=== PATIENT | male | born 1960 | race Caucasian/White ===

== ENCOUNTER → 2023-08-11 | Emergency (ER) | payer BC, OTHER ==
[~2023-08-11] MED LIST: AZITHROMYCIN 250 MG TAB ONE; BENZONATATE 100 MG CAP PO ONE; GUAIFENESIN/DM 5 ML UCUP ONE; PROMETHAZINE 25 MG TABLET ONE
--- OUTSIDE RECORDS SUMMARY | 2023-08-11 04:58 | XMS REPORT | Continuity of Care Document ---
Author Name Unknown Address [address] [facility]. [address] [place] [address] [facility] thconnect Address [address] 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 Name Role Phone RUBEN GUTIERREZ Primary Care Physician UnavailDivya Sykes MD Attending Clinician [phone] DIVYA HARRELL Admitting Clinician Unavailable Payers Payer Name Policy Type Policy Number Effective Date Expirati on Date Source Problems Condition Name Condition Details Condition Category Status Onset Date Resolution Date Last Treatment Date Treating Clinician Comments Source No known active problems No known active problems Disease [facility] Allergies, Adverse Reactions, Alerts Allergy Name Allergy Type Status Severity Reaction(s) Onset Date Inactive Date Treating Clinician Comments Source NO KNOWN ALLERGIE S Drug Class Active [facility] Social History Social Habit Start Date Stop Date Quantity Comments Source Exposure to SARS-CoV-2 (event) 2022-03-10 00:00:00 2022-03-20 02:38:00 Not sure [facility] Alcohol intake 2014-10-24 00:00:00 2014-10-24 00:00:00 [facility] Sex Ass[birth year] At 1960 00:00:00 1960 00:00:00 [facility] Smoking Status Start Date Stop Date Source Never smoked tobacco [facility] Medications Ordered Medication Name Filled Medication Name Start Date Stop Date Current Medication? Ordering Clinician Indication Dosage Frequency Signature (SIG) Comments Components Source ipratropium -albuteroL (DUONEB) 0.5 mg-3 mg(2.5 mg base)/3 mL nebulizer solution 3 mL 03-20 08:00: 00 03-20 08:12 :00 No 3mL 3 mL, Inhalation , ONCE NOW, 1 dose, On Fri03/20/22 at 0300, Routine [facility] nirmatrelvi r-ritonavir (PAXLOVID, EUA,) 300 mg (150 mg x 2)-100 mg tablet 03-20 00:00: 00 Yes [id number] 3{tbl} Take 3 tablets by mouth in the morning and 3 tablets in the evening. [facility] albuterol 90 mcg/actuati on inhaler 03-20 00:00: 00 Yes [id number] 2{puff} Inhale 2 Puffs every 4 (four) hours as needed for Wheezing or Shortness of Breath. [facility] vitamin B-12 (VITAMIN B-12) 1,000 mcg tablet 07-08 19:33: 32 Yes 1000ug Take 1,000 mcg by mouth daily. [facility] VITAMIN E, DL,TOCOPHER YL ACET, (VITAMIN E, DL, ACETATE, ORAL) 07-08 19:33: 32 Yes Take by mouth. [facility] [place]-3 Fatty Acids (FISH OIL) 500 mg Cap 07-08 19:33: 32 Yes Take by mouth. [facility] Vital Signs Vital Name Observation Time Observation Value Comments S ource Systolic blood pressure 2022-03-20 08:45:00 150 mm[Hg] [facility] Diastolic blood pressure 2022-03-20 08:45:00 71 mm[Hg] [facility] Heart rate 2022-03-20 08:45:00 82 /min [facility] Body temperature 2022-03-20 08:45:00 36.72 Jihan [facility] Respiratory rate 2022-03-20 08:45:00 17 /min [facility] Oxygen saturation in Arterial blood by Pulse oximetry 2022-03-20 08:45:00 97 /min [facility] Body height 2022-03-20 07:39:00 167.6 cm [facility] Body weight 2022-03-20 07:39:00 86.183 kg [facility] BMI 2022-03-20 07:39:00 30.67 kg/m2 [facility] Procedures Procedure Date / Time Performed Performing Clinicia n Source COVID-19 (ID NOW RAPID TESTING) 2022-03-20 08:11:00 Divya Harrell [facility] XR CHEST 1 VW 2022-03-20 08:10:[address] [facility] CONSENT/REFUSAL FOR DIAGNOSIS AND TREATMENT 2022-03-20 07:23:54 Doctor Unassigned, [place] [facility] Encounters Start Date/Time End Date/Time Encounter Type Admission Type Attending [facility] Care Facility Care Department Encounter ID Source 2022-03-20 02:37:00 2022-03-20 04:02:00 Emergency Divya Harrell [facility] [id number] [facility] 2022-03-20 02:37:00 2022-03-20 04:02:00 Emergency X DIVYA HARRELL [facility] ERT [id number] [facility]
[2023-08-11 05:48] LABS: SARS-CoV-2 Antigen Rapid Res Negative (Negative)
--- NOTE | 2023-08-11 07:01 | ER ---
Nurse's Notes [facility] Name: Erasto Ho Jr Age: 62 yrs Sex: Male : 1960 Arrival Date: 08/11/2023 Time: 04:55 Bed 6 Private MD: Sofi Barillas H Diagnosis: Acute bronchitis, unspecified Presentation: 08/11 05:11 Chief complaint: Patient states: I have been having flu like symptoms for about a week jb4 and was advised to get a covid test and I want to know whats going on. Coronavirus screen: At this time, the client does not indicate any symptoms associated with coronavirus-19. Ebola Screen: No symptoms or risks identified at this time. Initial Sepsis Screen: Does the patient meet any 2 criteria? No. Patient's initial sepsis screen is negative. Does the patient have a suspected source of infection? No. Patient's initial sepsis screen is negative. Risk Assessment: Do you want to hurt yourself or someone else? Patient reports no desire to harm self or others. Onset of symptoms was August 11, 2023. Transition of care: patient was not received from another setting of care. 05:11 Method Of Arrival: Ambulatory jb4 05:11 Acuity: NAGA 4 jb4 Historical: - Allergies: 05:14 No Known Allergies; jb4 - PMHx: 05:14 None; jb4 - PSHx: 05:15 hernia repair; jb4 - Immunization history:: Adult Immunizations up to date. - Social history:: Smoking status: Patient denies any tobacco usage or history of. - Family history:: not pertinent. Screenin:43 [facility] ED Fall Risk Assessment (Adult) History of falling in the last 3 months, tm6 including since admission No falls in past 3 months (0 pts). Abuse screen: Denies threats or abuse. Denies injuries from another. Nutritional screening: No deficits noted. Tuberculosis screening: No symptoms or risk factors identified. Assessment: 05:20 General: Appears in no apparent distress. comfortable, Behavior is calm, cooperative. jw7 Pain: Denies pain. Neuro: Level of Consciousness is awake, alert, obeys commands, Oriented to person, place, time, situation. Cardiovascular: Capillary refill < 3 seconds Clubbing of nail beds is absent JVD is absent Patient's skin is warm and dry. Respiratory: Airway is patent Trachea midline Respiratory effort is even, unlabored, Respiratory pattern is regular, symmetrical. Respiratory: Reports cough that is productive, persistent Onset: The symptoms/episode began/occurred 1 week ago, the patient has moderate shortness of breath. GI: Abdomen is flat, non-distended, Bowel sounds present X 4 quads. Abd is soft and non tender X 4 quads. : No deficits noted. No signs and/or symptoms were reported regarding the genitourinary system. EENT: No deficits noted. No signs and/or symptoms were reported regarding the EENT system. Derm: Skin is intact, is healthy with good turgor, Skin is dry, Skin is normal. Musculoskeletal: Circulation, motion, and sensation intact. Range of motion: intact in all extremities. 06:37 Reassessment: Patient appears in no apparent distress at this time. No changes from jw7 previously documented assessment. Patient and/or family updated on plan of care and expected duration. Pain level reassessed. Patient is alert, oriented x 3, equal unlabored respirations, skin warm/dry/pink. Vital Signs: 05:11 BP 163 / 91; Pulse 79; Resp 18; Temp 98(O); Pulse Ox 99% on R/A; Weight 83.01 kg (R); jb4 Height 5 ft. 6 in. ; Pain 0/10; 05:44 BP 143 / 81; Pulse 74; Pulse Ox 99% on R/A; tm6 06:35 BP 146 / 83; Pulse 72; Pulse Ox 97% on R/A; tm6 05:11 Body Mass Index 29.54 (83.01 kg, 167.64 cm) jb4 05:11 Pain Scale: Adult jb4 ED Course: 05:01 Patient arrived in ED. gm2 05:02 Sofi Barillas DO is Private Physician. gm2 05:14 Triage completed. jb4 05:15 Jere Agarwal MD is Attending Physician. sp4 05:15 Arm band placed on right wrist. jb4 05:43 Patient has correct armband on for positive identification. Bed in low position. Call tm6 light in reach. Side rails up X 1. Provided Education on: plan of care. Client placed on continuous cardiac and pulse oximetry monitoring. NIBP monitoring applied. Door closed. Noise minimized. Warm blanket given. 05:43 No provider procedures requiring assistance completed. tm6 05:48 Chest Pa And Lat (2 Views) XRAY In Process Unspecified. EDMS 06:59 Soif Barillas is Referral Physician. sp4 07:16 Patient did not have IV access during this emergency room visit. kc6 Administered Medications: 05:51 Drug: Promethazine PO 25 mg PO once Route: PO; jw7 05:51 Drug: Dextromethorphan-Guaifenesin PO Liquid 10 mg-100 mg/5 mL 10 ml PO once Route: PO; jw7 05:51 Drug: Tessalon Perle PO 200 mg PO once Route: PO; jw7 06:58 Drug: AZITHromycin PO 500 mg PO once Route: PO; tm6 Medication: 05:43 VIS not applicable for this client. tm6 Outcome: 07:00 Discharge ordered by . sp4 07:16 Discharged to home ambulatory, with significant other, kc6 07:16 Condition: good 07:16 Discharge instructions given to patient, Instructed on discharge instructions, follow up and referral plans. medication usage, Demonstrated understanding of instructions, follow-up care, medications, Prescriptions given X 2, 07:16 Patient left the ED. kc6 Signatures: Dispatcher [employer] EDCT Bebo Gilman RN RN jb4 Rashmi Reynolds RN RN jw7 Campbell, Kaitlyn, RN RN kc6 Jere Agarwal MD MD sp4 Mitchell, G[facility] Chalino Awad RN RN tm6 Corrections: (The following items were deleted from the chart) 05:15 05:14 PSHx: None; jb4 jb4
--- NOTE | 2023-08-11 07:01 | EDPHYS ---
Physician Documentation [facility] Name: Erasto Ho Jr Age: 62 yrs Sex: Male : 1960 Arrival Date: 08/11/2023 Time: 04:55 Bed 6 Private MD: Sofi Barillas H ED Physician Jere Agarwal HPI: 08/11 05:32 This 62 yrs old Male presents to ER via Ambulatory with complaints of Cough, sp4 Chest Congestion, chills. 05:46 62-year-old male presents with 1 week of cough, fever, congestion, chills, spitting up sp4 yellow mucus. . 06:51 . sp4 Historical: - Allergies: 05:14 No Known Allergies; jb4 - PMHx: 05:14 None; jb4 - PSHx: 05:15 hernia repair; jb4 - Immunization history:: Adult Immunizations up to date. - Social history:: Smoking status: Patient denies any tobacco usage or history of. - Family history:: not pertinent. ROS: 05:46 Constitutional: Negative for fever, chills, and weight loss, sp4 05:46 All other systems are negative, Exam: 05:46 Constitutional: This is a well developed, well nourished patient who is awake, alert, sp4 and in no acute distress. Head/Face: Normocephalic, atraumatic. Eyes: Pupils equal round and reactive to light, extra-ocular motions intact. Lids and lashes normal. Conjunctiva and sclera are not injected. Cornea within normal limits. Periorbital areas with no swelling, redness, or edema. ENT: Nares patent. No nasal discharge, no septal abnormalities noted. Tympanic membranes are normal and external auditory canals are clear. Oropharynx with no redness, swelling, or masses, exudates, or evidence of obstruction, uvula midline. Mucous membranes moist. Neck: Trachea midline, no thyromegaly or masses palpated, and no cervical lymphadenopathy. Supple, full range of motion without nuchal rigidity, or vertebral point tenderness. Chest/axilla: Normal chest wall appearance and motion. Nontender with no deformity. No lesions are appreciated. Cardiovascular: Regular rate and rhythm with a normal S1 and S2. No gallops, murmurs, or rubs. Normal PMI, no JVD. No pulse deficits. Respiratory: Lungs have equal breath sounds bilaterally, clear to auscultation and percussion. No rales, rhonchi or wheezes noted. No increased work of breathing, no retractions or nasal flaring. Abdomen/GI: Soft, non-tender, with normal bowel sounds. No distension or tympany. No guarding or rebound. No evidence of tenderness throughout. Back: No spinal tenderness. No costovertebral tenderness. Skin: Warm, dry with normal turgor. Normal color with no rashes, no lesions, and no evidence of cellulitis. MS/ Extremity: Pulses equal, no cyanosis. Neurovascular intact. Full, normal range of motion. Neuro: Awake and alert, GCS 15, oriented to person, place, time, and situation. Cranial nerves II-XII grossly intact. Motor strength 5/5 in all extremities. Sensory grossly intact. Psych: Awake, alert, with orientation to person, place and time. Behavior, mood, and affect are within normal limits Vital Signs: 05:11 BP 163 / 91; Pulse 79; Resp 18; Temp 98(O); Pulse Ox 99% on R/A; Weight 83.01 kg (R); jb4 Height 5 ft. 6 in. ; Pain 0/10; 05:44 BP 143 / 81; Pulse 74; Pulse Ox 99% on R/A; tm6 06:35 BP 146 / 83; Pulse 72; Pulse Ox 97% on R/A; tm6 05:11 Body Mass Index 29.54 (83.01 kg, 167.64 cm) jb4 05:11 Pain Scale: Adult jb4 MDM: 05:15 Patient medically screened. sp4 06:50 Data reviewed: vital signs, nurses notes, lab test result(s), Flu: negative. ED course: sp4 EXAM DESCRIPTION: Chest Pa And Lat (2 Views) CLINICAL HISTORY: persistent cough COMPARISON: None TECHNIQUE: PA and lateral views of the chest. FINDINGS: Lung volumes adequate. Cardiac silhouette is normal in size. No pneumothorax. No large pleural effusion. No focal consolidation. No acute bony finding. IMPRESSION: No evidence of acute cardiopulmonary disease. Electronically signed by: Hilda Zelaya MD 08/11/2023 05:56 AM. 06:58 Differential Diagnosis: Bronchitis Influenza Upper Respiratory Infection Sinusitis sp4 Pharyngitis Otitis Media. Consideration of Admission/Observation Escalation of care including admission/observation considered. ED course: COVID is negative. Flu is negative . 08/11 05:15 Order name: SARS RAPID; Complete Time: 06:48 sp4 08/11 05:15 Order name: Influenza Screen (a \T\ B); Complete Time: 06:48 sp4 08/11 05:32 Order name: Chest Pa And Lat (2 Views) XRAY sp4 Administered Medications: 05:51 Drug: Promethazine PO 25 mg PO once Route: PO; jw7 05:51 Drug: Dextromethorphan-Guaifenesin PO Liquid 10 mg-100 mg/5 mL 10 ml PO once Route: PO; jw7 05:51 Drug: Tessalon Perle PO 200 mg PO once Route: PO; jw7 06:58 Drug: AZITHromycin PO 500 mg PO once Route: PO; tm6 Disposition Summary: 08/11/23 07:00 Discharge Ordered Notes: Location: Home sp4 Problem: new sp4 Symptoms: have improved sp4 Condition: Stable sp4 Diagnosis - Acute bronchitis, unspecified sp4 Followup: sp4 - With: Sofi Barillas DO - When: 7 - 10 days - Reason: Recheck today's complaints Discharge Instructions: - Discharge Summary Sheet sp4 - Acute Bronchitis, Adult sp4 Forms: - Work release form bd - Patient Portal Instructions sp4 Prescriptions: - dextromethorphan-guaifenesin 60-1,200 mg Oral Tablet, Extended Release 12 hr - take 1 tablet ORAL route every 12 hours PRN cough; 42 tablet; Refills: 0, sp4 Product Selection Permitted - Zithromax Z-Juanito 250 mg Oral Tablet - take 1 tablet ORAL route as directed for 5 days Day 1 - take two (2) tablets sp4 one time. Day 2, 3, 4 , 5 take one (1) tablet once daily.; 6 tablet; Refills: 0, Product Selection Permitted Signatures: Dispatcher [employer] Bebo Rain RN RN jb4 Rashmi Reynolds RN RN jw7 Jere Agarwal MD MD sp4 Chalino Awad RN RN tm6 Corrections: (The following items were deleted from the chart) 05:15 05:14 PSHx: None; jb4 jb4
--- NOTE | 2023-08-11 12:42 | RAD REPORT ---
EXAM DESCRIPTION: RAD - Chest Pa And Lat (2 Views) - 08/11/2023 5:46 am CLINICAL HISTORY: Persistent cough COMPARISON: None TECHNIQUE: PA and lateral views of the chest. FINDINGS: Lung volumes adequate. Cardiac silhouette is normal in size. No pneumothorax. No large pleural effusion. No focal consolidation. No acute bony finding. IMPRESSION: No evidence of acute cardiopulmonary disease. Electronically signed by: Hilda Zelaya MD 08/11/2023 05:56 AM [employer] Due to temporary technical issues with the PACS/Fluency reporting system, reports are being signed by the in house radiologist without review as a courtesy to ensure prompt reporting. The interpreting r adiologist is fully responsible for the content of the report
[2023-08-11 19:56] VITALS: BP 123/92; TEMP 97.9; O2SAT 98
== END ==
LOC: ER 04:55
DX: J20.9 Acute bronchitis, unspecified (principal); Z11.52 Encounter for screening for COVID-19
CPT/HCPCS: 36415; 87804 ×2; 71046; 87811; Q0169

== ENCOUNTER 2025-02-18 21:36 | Emergency (ER) | payer BC ==
[2025-02-18] MEDS ORDERED: ONDANSETRON 4 MG (ODT) TAB ONE (22:26)
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
[2025-02-19 04:32] VITALS: TEMP 98.6
[2025-02-19 04:40] VITALS: BP 141/74; O2SAT 98
== END 2025-02-18 23:41 | disposition home or self-care (01) ==
LOC: ER 21:36
DX: S00.83XA Contusion of other part of head, initial encounter (principal); Y04.8XXA Assault by other bodily force, initial encounter
CPT/HCPCS: 70450; 72125; 99283; Q0162